=== PATIENT | female | born 1955 | race Hispanic/Latino ===

== ENCOUNTER 2017-01-20 22:00 | Emergency (ER) | payer MEDICAID ==
[2017-01-20 22:06] VITALS: BP 150/85; PULSE 84; RESP 16; TEMP 98.6; O2SAT 98
--- NOTE | 2017-01-20 22:16 | ED PDOC ---
HPI: Skin/Bite Injury Time Seen by Provider: 01/20/17 22:13 Chief Complaint (Nursing): Bite Chief Complaint (Provider): bite cat History Per: Patient History/Exam Limitations: no limitations Additional Complaint(s): 61yoF in ED for eval of left hand dorsum swelling and redness with pain and dec ROM of hand from cat bite this AM-worsening symptoms as the day progressed. negative for fever chills nausea or vomiting. Pt denies drainage from wound. Pt states cat are household personal cats, but doesn't know if they have had immunizations. cats have been at vet twice in lifetime. denies noting at very aggressive or rabid. Past Medical History Reviewed: Historical Data, Nursing Documentation, Vital Signs Vital Signs: Last Vital Signs Temp 98.6 F 01/20/17 22:03 Pulse 84 01/20/17 22:03 Resp 16 01/20/17 22:03 BP 150/85 01/20/17 22:03 Pulse Ox 98 01/20/17 22:34 - Medical History PMH: Back Problems, HTN, Hypercholesterolemia - Surgical History Surgical History: Cholecystectomy - Family History Family History: States: Unknown Family Hx - Home Medications Home Medications: Ambulatory Orders Medication Instructions Recorded Cyclobenzaprine HCl [Flexeril] 10 mg PO HS PRN #10 tab 07/28/15 Naproxen 500 mg PO BID PRN #20 tab 07/28/15 Amoxicillin/Clavulanate [Augmentin 1 tab PO BID #14 tab 01/20/17 875 MG-125 MG] - Allergies Allergies/Adverse Reactions: Allergies Allergy/AdvReac Type Severity Reaction Status Date / Time No Known Allergies Allergy Verified 01/20/17 22:02 Review of Systems ROS Statement: Except As Marked, All Systems Reviewed And Found Negative Constitutional: Negative for: Fever, Chills Musculoskeletal: Positive for: Hand Pain Physical Exam - Reviewed Nursing Documentation Reviewed: Yes Vital Signs Reviewed: Yes - Physical Exam Appears: Positive for: Non-toxic, No Acute Distress, Uncomfortable Head Exam: Positive for: ATRAUMATIC, NORMAL INSPECTION, NORMOCEPHALIC Cardiovascular/Chest: Positive for: Regular Rate, Rhythm Respiratory: Positive for: CNT, Normal Breath Sounds Extremity: Positive for: Other (left hand: swelling to dorsum of hand, puncture wound noted, warm to touch streaking tendenress and swellng .dec ROM of hand due to swelling/pain/stiffness. good pulses. ) Neurologic/Psych: Positive for: Alert, Oriented - Laboratory Results Result Diagrams: 01/20/17 22:49 01/20/17 22:49 - ECG O2 Sat by Pulse Oximetry: 98 - Progress ED Course And Treament: pt will get xray of hand, labs and unasyn for cat bite Medical Decision Making Medical Decision Making: PT with acute infection from cat bite, normal xray of hand, received unaysn IV and will be d/c on augmetin PO with f.u with pmd in 3d to monitor wound and advised to use warm compress to area. told if worsened to return to ED [facility]. labs are WNL VS stable and pt nontoxic appearing. Disposition - Clinical Impression Clinical Impression: Animal bite wound - Patient ED Disposition Is Patient to be Admitted: No Counseled Patient/Family Regarding: Studies Performed, Diagnosis, Need For Followup, Rx Given - Disposition Referrals: [facility] [place] [Outside] Disposition: Routine/Home Disposition Time: 23:50 Condition: STABLE Additional Instructions: use warm compress to area daily. have your doctor evaluate your hand in 3 days. Prescriptions: Amoxicillin/Clavulanate [Augmentin 875 MG-125 MG] 1 tab PO BID #14 tab Instructions: Animal Bite (ED)
[2017-01-20] MEDS ORDERED: Ampicillin/Sulbactam 3 GM in Sodium Chloride 0.9% 100 ML IVPB STA (22:25)
[2017-01-20 23:01] LABS: BASO # 0.1 K/uL (0.0-0.2); BASO % 0.7 % (0.0-2.0); EOS # 0.1 K/uL (0.0-0.7); EOS % 1.3 % (0.0-4.0); HEMATOCRIT 40.6 % (34.0-47.0); LYMPH # 2.3 K/uL (1.0-4.3); LYMPH % 26.7 % (20.0-40.0); MEAN CORPUSCULAR HEMOGLOBIN 28.3 pg (27.0-31.0); MEAN CORPUSCULAR HGB CONC 33.7 g/dL (33.0-37.0); MEAN PLATELET VOLUME 9.9 fl (7.2-11.7); MONO # 0.6 K/uL (0.0-0.8); MONO % 7.4 % (0.0-10.0); NEUT # 5.6 K/uL (1.8-7.0); NEUT % 63.9 % (50.0-75.0); NRBC % 0.2 % (0.0-0.0); RED CELL DISTRIBUTION WIDTH 13.6 % (11.5-14.5); WHITE BLOOD COUNT 8.8 K/uL (4.8-10.8)
[2017-01-20 23:08] LABS: ALB/GLOB RATIO 1.3 (1.0-2.1); ALKALINE PHOSPHATASE 92 U/L (38-126); ALT/SGPT 39 U/L (9-52); AST/SGOT 25 U/L (14-36); BILIRUBIN,TOTAL 0.4 mg/dl (0.2-1.3); BLOOD UREA NITROGEN 26 mg/dl (7-17); CALCIUM 9.3 mg/dL (8.4-10.2); CARBON DIOXIDE 30 mmol/L (22-30); CHLORIDE 103 mmol/L (98-107); GFR AFRICAN-AMERICAN > 60; GLUCOSE,RANDOM 94 mg/dL (65-105); POTASSIUM 4.2 MMOL/L (3.6-5.0); SODIUM 141 mmol/l (132-148); TOTAL PROTEIN 7.9 G/DL (6.3-8.2)
[2017-01-21] MEDS ORDERED: Ampicillin/Sulbactam 3 GM in Sodium Chloride 0.9% 100 ML IVPB SCH (04:00)
--- NOTE | 2017-01-21 11:33 | RAD ---
PROCEDURE: Left Hand Radiographs. HISTORY: hand injury COMPARISON: None available. FINDINGS: BONES: No acute displaced fracture. JOINTS: No dislocation. SOFT TISSUES: Unremarkable. No evidence of radiopaque foreign body. OTHER FINDINGS: None. IMPRESSION: No acute displaced fracture, dislocation, or significant joint effusion identified. If symptoms persist, or if there is continued clinical concern, x-ray follow-up in 7-10 days should be considered.
== END 2017-01-21 00:05 | disposition home or self-care (01) ==
LOC: H.ER 22:00
DX: L08.9 Local infection of the skin and subcutaneous tissue, unspecified (principal); E78.00 Pure hypercholesterolemia, unspecified; I10 Essential (primary) hypertension